=== PATIENT | female | born 1955 | race Caucasian/White ===

== ENCOUNTER 2024-07-27 14:30 | Observation (INO) | payer OTHER, BC ==
[2024-07-27] MEDS ORDERED: methylPREDNISolone NA SUCC 125 MG/2 ML VIAL ONE (15:05)
[2024-07-27] MEDS: methylPREDNISolone NA SUCC 125 MG/2 ML VIAL IVPB ONE (15:10)
[2024-07-27] MEDS: ALBUTEROL SO4 2.5/IPRATROPIUM 0.5 INH SOL 3 ML VIAL.NEB. NEB SCH ×2 (15:10→22:44)
[2024-07-27 15:37] LABS: HEMATOCRIT 41.5 % (32.4-45.2); HEMOGLOBIN 13.6 G/dL (10.7-15.3); MCH 28.1 pg (25.7-33.7); MCHC 32.8 g/dl (32.0-36.0); MEAN CELL VOLUME 85.8 fl (80-96); MEAN PLT VOLUME 8.2 fl (7.5-11.1); PLATELET COUNT 257.8 10^3/uL (134-434); RBC 4.84 10^6/uL (3.60-5.2); RDW 14.1 % (11.6-15.6)
[2024-07-27] MEDS ORDERED: ACETAMINOPHEN 325 MG TABLET (FP) ONE (15:58)
[2024-07-27 16:00] LABS: ALBUMIN 4.6 g/dl (3.4-5.0); BILIRUBIN,TOTAL 0.7 mg/dl (0.2-1); CALCIUM 10.3 mg/dl (8.5-10.1); CREATININE 0.8 mg/dl (0.6-1.3); MAGNESIUM 1.4 mg/dL (1.8-2.4); POTASSIUM 3.4 mmol/L (3.5-5.1); TOT PROT 7.1 g/dl (6.4-8.2)
[2024-07-27] MEDS: ACETAMINOPHEN 500 MG TABLET (FP) PO ONE (16:02)
[2024-07-27] MEDS ORDERED: MAGNESIUM SULFATE IN WATER 2 GM/50 ML IVPB IVPB ONE (16:26)
[2024-07-27] MEDS: MAGNESIUM SULF 50% (8.12 MEQ/2 ML-1 GM VIAL) IVPB ONE (16:35)
[2024-07-27] MEDS: SODIUM CHLORIDE 0.9% 500 ML INFUS.BAG IV ONE (16:35)
[2024-07-27 16:55] LABS: N-TERMINAL BNP 83.7 pg/ml (5-125)
[2024-07-27 19:00] VITALS: BMI 35.2
[2024-07-27] MEDS ORDERED: DOCUSATE SODIUM 100 MG CAPSULE (FP) PO PRN (22:09)
[2024-07-27] MEDS ORDERED: ALBUTEROL SO4 2.5/IPRATROPIUM 0.5 INH SOL 3 ML VIAL.NEB. NEB PRN (22:15)
[2024-07-28] MEDS: methylPREDNISolone NA SUCC 40 MG/1 ML VIAL IVPUSH SCH (01:39)
[2024-07-28] MEDS: LISINOPRIL 20 MG TABLET PO SCH (02:37)
[2024-07-28] MEDS: INSULIN ASPART SLIDING SCALE (NOVOLOG) 1 VIAL SQ SCH (06:24)
[2024-07-28] MEDS: LEVOTHYROXINE NA 50 MCG TABLET (FP) PO SCH (06:24)
[2024-07-28 08:20] LABS: HEMATOCRIT 38.1 % (32.4-45.2); HEMOGLOBIN 12.7 G/dL (10.7-15.3); INR 0.94 (0.83-1.09); MCH 28.7 pg (25.7-33.7); MCHC 33.3 g/dl (32.0-36.0); MEAN CELL VOLUME 86.3 fl (80-96); MEAN PLT VOLUME 9.2 fl (7.5-11.1); PLATELET COUNT 241.2 10^3/uL (134-434); PROTHROMBIN TIME (PATIENT) 10.7 SEC (9.7-13.0); RBC 4.42 10^6/uL (3.60-5.2); RDW 14.1 % (11.6-15.6); WHITE BLOOD COUNT 8.6 10^3/uL (4.0-10.8)
[2024-07-28 08:23] LABS: ACTIVATED PTT 30.7 SECONDS (25.2-36.5)
[2024-07-28 08:55] LABS: CALCIUM 10.3 mg/dl (8.5-10.1); CREATININE 0.8 mg/dl (0.6-1.3); MAGNESIUM 2.1 mg/dL (1.8-2.4); PHOSPHOROUS 4.5 (2.5-4.9); POTASSIUM 5.3 mmol/L (3.5-5.1)
[2024-07-28] MEDS: FUROSEMIDE 20 MG TABLET (FP) PO SCH (09:03)
[2024-07-28] MEDS: ALBUTEROL SO4 2.5/IPRATROPIUM 0.5 INH SOL 3 ML VIAL.NEB. NEB SCH (09:03)
[2024-07-28] MEDS: guaiFENesin/D-METHORPHAN TAB.ER.12H PO SCH (09:03)
[2024-07-28] MEDS: predniSONE 20 MG TABLET (UD) PO SCH (09:03)
[2024-07-28] MEDS ORDERED: HYDROCHLOROTHIAZIDE 25 MG TABLET (FP) PO SCH (10:00)
[2024-07-28] MEDS: LACTATED RINGERS SOLUTION 1000 ML INFUS.BAG IV ONE (11:16)
[2024-07-28] MEDS: INSULIN (LEVEMIR) 100 UNITS/ML UNITS SQ ONE (14:22)
[2024-07-28] MEDS: INSULIN (NOVOLOG) ASPART 100 UNITS/ML 10ML VIAL SQ ONE ×2 (14:22→14:54)
[2024-07-28] MEDS: ACETAMINOPHEN 325 MG TABLET (FP) PO PRN (20:58)
[2024-07-28] MEDS: ATORVASTATIN CA 40 MG TABLET (FP) PO SCH (21:01)
[2024-07-28 21:09] VITALS: RESP 18
[2024-07-29] MEDS ORDERED: INSULIN (LEVEMIR) 100 UNITS/ML UNITS SQ ONE (08:00)
[2024-07-29] MEDS: INSULIN (LEVEMIR) 100 UNITS/ML UNITS SQ ONE (09:09)
[2024-07-29 09:15] VITALS: BP 120/65; PULSE 88; TEMP 98.6
[2024-07-29] MEDS ORDERED: predniSONE 20 MG TABLET (UD) PO SCH (10:00)
[2024-07-29] MEDS: ENOXAPARIN NA (PORCINE) 40 MG/0.4 ML DISP.SYRIN SQ SCH (10:05)
[2024-07-29] MEDS: BUDESONIDE/FORMETEROL FUMARATE 80/4.5 mcg INHALER IH SCH (10:07)
== END 2024-07-29 14:33 | disposition home or self-care (01) ==
LOC: FER 14:30 → FM/S 17:10
PROVIDERS: ADMIT Internal Medicine; ATTEND Internal Medicine
PROC: 3E033NZ Introduction of Analgesics, Hypnotics, Sedatives into Peripheral Vein, Percutaneous Approach (ICD-10-PCS; principal; 2024-07-27)
PROC: 3E0337Z Introduction of Electrolytic and Water Balance Substance into Peripheral Vein, Percutaneous Approach (ICD-10-PCS; 2024-07-27)
PROC: 3E033GC Introduction of Other Therapeutic Substance into Peripheral Vein, Percutaneous Approach (ICD-10-PCS; 2024-07-27)
PROC: 3E013VG Introduction of Insulin into Subcutaneous Tissue, Percutaneous Approach (ICD-10-PCS; 2024-07-27)
PROC: 3E013GC Introduction of Other Therapeutic Substance into Subcutaneous Tissue, Percutaneous Approach (ICD-10-PCS; 2024-07-27)
PROC: 3E0F7SF Introduction of Other Gas into Respiratory Tract, Via Natural or Artificial Opening (ICD-10-PCS; 2024-07-27)
DX: J45.901 Unspecified asthma with (acute) exacerbation (principal); R09.02 Hypoxemia; E83.52 Hypercalcemia; I10 Essential (primary) hypertension; E11.65 Type 2 diabetes mellitus with hyperglycemia; E78.5 Hyperlipidemia, unspecified; E03.9 Hypothyroidism, unspecified; Z79.84 Long term (current) use of oral hypoglycemic drugs
CPT/HCPCS: 0241U-QW; 36415; 71045-TC-FY; 80048; 80053; 82962; 83735; 83880; 84100; 84439; 84443; 84484; 85027; 85610; 85730; 93005; 94640; 96372; 96374; 96375; 96376; 99285-25; G0378